=== PATIENT | male | born 1995 | race Native Hawaiian/Other Pacific Islander ===

== ENCOUNTER 2021-07-24 08:36 | Day surgery (SDC) | payer OTHER ==
[~2021-07-24] VITALS: Ht 185.4 cm; Wt 119.8 kg
[2021-07-24] MEDS ORDERED: PRILOTC PO (08:56)
[2021-07-24] MEDS ORDERED: SARAFEM20 M1 PO (08:56)
[2021-07-24 08:57] VITALS: BP 124/93; PULSE 73; TEMP 97.6
[2021-07-24 09:40] VITALS: BP 108/83; PULSE 72
--- NOTE | 2021-07-24 09:40 | NUR ---
PATIENT ARRIVES TO ROOM 1 VIA CART. HE IS AWAKE AND ORIENTED. HE REQUESTS A MUFFIN AND APPLE JUICE. VITAL SIGNS WNL. WILL CONTINUE TO MONITOR.
[2021-07-24 09:55] VITALS: BP 118/80; PULSE 78
--- NOTE | 2021-07-24 09:55 | NUR ---
PATIENT IS AWAKE AND ORIENTED. TOLERATED MUFFIN AND JUICE WELL. VITAL SIGNS WNL. WILL CONTINUE TO MONITOR.
[2021-07-24 10:10] VITALS: BP 116/71; PULSE 73
--- NOTE | 2021-07-24 10:10 | NUR ---
PATIENT IS READY FOR DISCHARGE. VITAL SIGNS WNL. IV IS DISCONTINUED. RIDE IS WAITING DOWNSTAIRS. DISCHARGE INSTRUCTIONS REVIEWED. DOCTOR ALREADY SPOKE WITH PATIENT.
== END 2021-07-24 10:15 | disposition home or self-care (01) ==
LOC: SDCO 08:36
DX: K21.00 Gastro-esophageal reflux disease with esophagitis, without bleeding (principal); K29.50 Unspecified chronic gastritis without bleeding
CPT/HCPCS: J2704; J3010; J7030